=== PATIENT | female | born 1985 | race Caucasian/White ===

== ENCOUNTER 2019-03-24 14:02 | Emergency (ER) | payer OTHER, SELFPAY ==
[2019-03-24 14:07] VITALS: BP 106/70; PULSE 72; RESP 20; TEMP 37.1; O2SAT 100
--- NOTE | 2019-03-24 14:27 | ED.SKABFB ---
HPI - Skin/Abscess/Foreign Bdy General Chief complaint: Skin/Abscess/Foreign Body Stated complaint: poss anal abcess Time Seen by Provider: 03/24/19 14:27 Source: patient Mode of arrival: Wheelchair Limitations: no limitations History of Present Illness HPI narrative: 33-year-old female here for evaluation of pain around her anal area. She has noticed some pain in the area for the past couple days but worsening over the past 24 hours. She thinks is an abscess. Has not tried anything for symptoms prior to arrival. No prior anal abscesses. Related Data Previous Rx's Medication Instructions Recorded acetaminophen-codeine 1 tab PO Q4H PRN #10 tab 03/24/19 [Tylenol-Codeine #3] hydrocortisone-pramoxine 1 applictn IN TID-QID PRN #10 gram 03/24/19 [Proctofoam HC] Allergies Allergy/AdvReac Type Severity Reaction Status Date / Time Iodinated Contrast Media Allergy Severe Anaphylaxis Verified 03/24/19 14:12 latex Allergy Intermediate Rash Verified 03/24/19 14:10 Review of Systems Constitutional Constitutional: Denies fever(s) and Denies headache(s) ENT Ears, Nose, Mouth, and Throat: Denies headache(s) Gastrointestinal Gastrointestinal: Denies abdominal pain, Denies nausea and Denies vomiting Comments: Pain around the rectal area Genitourinary Genitourinary: Denies dysuria and Denies vaginal discharge Integumentary/Breasts Comments: Swelling around the rectal area Neurologic Neurologic: Denies behavioral changes and Denies headache(s) Psychiatric Psychiatric: Denies behavioral changes Hematologic/Lymphatic Hematologic/Lymphatic: Denies easy bleeding and Denies easy bruising Patient History Medical History Gastroparesis (Acute) Social History Smoking Status: Never smoker Smoking Status: Never smoker alcohol intake frequency: other Substance Use Type: marijuana Exam Initial Vital Signs Initial Vital Signs: Vital Signs Temperature 98.8 F 03/24/19 14:07 Pulse Rate 72 03/24/19 14:07 Respiratory Rate 20 03/24/19 14:07 Blood Pressure 106/70 03/24/19 14:07 Pulse Oximetry 100 03/24/19 14:07 Const General: cooperative, comfortable and well developed Limitations: mental status not altered [facility] Head: normal to inspection and normocephalic GI Other: Patient with a 1 cm thrombosed hemorrhoid left side. No active bleeding. Skin Other: Thrombosed hemorrhoid no other rashes Neuro General: alert, awake and oriented x3 Psych Appearance: grossly normal and well kempt Course Vital Signs Vital signs: Vital Signs - 8 hr 03/24/19 14:07 Temperature 98.8 F Pulse Rate 72 Respiratory Rate 20 Blood Pressure 106/70 Pulse Oximetry 100 MDM - Skin/Abscess/Foreign Bdy MDM Narrative Medical decision making narrative: Exam is consistent with a hemorrhoid. Low suspicion for an abscess. We did discuss treatment with the patient to include tucks pads and preparation H. Will also send home with Proctofoam. Also given a small course of pain medication. She is instructed to contact her primary provider about a referral to see General surgery. Discharge Plan Departure Patient Disposition: Home Clinical Impression: Hemorrhoid Qualifiers: Hemorrhoid type: unspecified Qualified Code(s): K64.9 - Unspecified hemorrhoids Instructions: Hemorrhoids (Alternative Therapy), Hemorrhoid Banding, DI for Hemorrhoids Activity Restrictions/Additional Instructions: Recommend that you try to have soft bowel movements like we discussed. You can use laxatives or stool softeners as needed. You can use [id number] preparation H and or tucks pads for the hemorrhoid. Contact your primary provider for follow-up. Prescriptions: New Proctofoam HC 1-1 % foam 1 applictn IN TID-QID PRN (Reason: hemorrhoids) Qty: 10 RF: 0 acetaminophen-codeine [Tylenol-Codeine #3] 300-30 mg tablet 1 tab PO Q4H PRN (Reason: pain) Qty: 10 RF: 0 Referrals: Khris Dalton MD [Primary Care Provider] -
--- NOTE | 2019-03-24 14:49 | PC.NURSE ---
chaperoned Dr. Price's exam.
== END 2019-03-24 15:09 | disposition home or self-care (01) ==
PROVIDERS: Emergency Provider Emergency Medicine; PCP Family Medicine
DX: K64.9 Unspecified hemorrhoids (principal)
CPT/HCPCS: 99281; 99283

== ENCOUNTER → 2022-01-26 13:47 | Outpatient (ROUT) | payer OTHER, SELFPAY ==
[2022-01-26 18:46] LABS: COVID-19 CEPHEID PCR (VTM/NP) Negative (Negative)
== END ==
PROVIDERS: PCP Family Medicine; Visit Provider Otolaryngology
DX: J35.01 Chronic tonsillitis (principal); J35.8 Other chronic diseases of tonsils and adenoids; R07.0 Pain in throat; J98.8 Other specified respiratory disorders; Z20.822 Contact with and (suspected) exposure to COVID-19
CPT/HCPCS: U0003; U0005

== ENCOUNTER 2022-01-28 10:19 | Day surgery (SDC) | payer OTHER, SELFPAY ==
[2022-01-27 13:40] VITALS: BMI 29.3
[2022-01-28 10:35] VITALS: BMI 27.3
[2022-01-28 10:48] VITALS: BP 117/69; PULSE 65; RESP 20; TEMP 36.3; O2SAT 98
[2022-01-28] MEDS: LACTATED RINGERS 1,000 ML 42 ML IV (10:48)
--- NOTE | 2022-01-28 10:51 | P.HP_ITS ---
History of Present Illness History of Present Illness Time Patient Seen: 10:51 Chief complaint: Tonsillectomy/Adenoidectomy Narrative: 36-year-old female last seen in clinic 11/24/2021 for chronic tonsillitis with stones and chronic throat irritation presents for tonsillectomy and possible adenoidectomy as outpatient. No interval health changes, wishes to proceed, staying locally before heading back to [place] tomorrow. Patient History Medical History Anemia Chronic tonsillitis EDS (Chris-Danlos syndrome) (2012) Gastroparesis GERD (gastroesophageal reflux disease) (1999) History of TMJ disorder POTS (postural orthostatic tachycardia syndrome) Thyroid nodule Tinnitus Surgical History Hx of colonoscopy Hx of tubal ligation (2013) [place] teeth removed (2015) Family & Social History Social History: household members spouse Tobacco & Substance use: Smoking Status Never smoker alcohol intake frequency other Substance Use Type marijuana Meds Home Medications and Allergies Home Medications Medication Instructions Recorded Confirmed Type atomoxetine 10 mg capsule 10 mg PO QAM 01/27/22 01/28/22 History (Strattera) Allergies Allergy/AdvReac Type Severity Reaction Status Date / Time Iodinated Contrast Media Allergy Severe Anaphylaxis Verified 01/28/22 10:33 latex Allergy Intermediate Rash Verified 01/28/22 10:33 adhesive Allergy Blister Verified 01/28/22 10:33 Review of Systems Review of Systems Narrative: Negative except as listed in the HPI Exam Narrative Exam Narrative: Well-developed well-nourished female in no acute distress. Heart regular rate and rhythm without murmur, lungs clear to auscultation bilaterally Assessment & Plan Assessment & Plan narrative: Assessment: Chronic tonsillitis with tonsil stones, chronic throat irritation Plan: Following discussion of the material risks benefits complications and alternatives, the patient elected to proceed with tonsillectomy and possible adenoidectomy as outpatient. Time Spent With Patient Critical Care time: I spent a total of [] minutes of critical care time on this patient's care today; this time is exclusive of procedural time.
--- NOTE | 2022-01-28 10:51 | PM.PREOP ---
Pre-operative Note Interval Note History & Physical reviewed/Exam performed by Physician: Yes Changes to H&P: No
--- NOTE | 2022-01-28 10:53 | P.OP_ITS ---
Operative Date/Time/Diagnoses Date of procedure: 01/28/22 Time of procedure: 11:41 Pre-op diagnosis: Chronic tonsillitis, tonsil stones, throat irritation Post-op diagnosis: same (mild adenoid hypertrophy) Procedure & Clinicians Procedure: Tonsillectomy and adenoidectomy Same procedure as scheduled: Yes Indications: 36-year-old female with the above diagnoses incompletely managed with medical therapy presents for the above procedure. Following discussion of the material risks benefits complications and alternatives, she elected to proceed. Surgeon: Kai Li Click Yes if Unassisted: Yes Anesthesia Type: General and Local Operative Notes Findings: Intact palate, single uvula, 1+ cryptic tonsils, 1+ adenoids Estimated Blood Loss (mL): 10 Procedure in detail: Following identification and confirmation of consent the patient was brought to the operating room suite and placed in the supine position. General endo tracheal anesthesia was administered. A head wrap, shoulder roll, and mouth gag were placed and a red rubber catheter was inserted through the nostril and out the mouth to retract the soft palate. Partially obstructive adenoid tissue was ablated with suction electrocautery on a setting of 40, without injury to the eustachian tube orifices or choana. The left tonsil was retracted medially and suction electrocautery on a setting of 30 was used to dissect the tonsil in a subcapsular plane, followed by hemostasis with the same. This process was repeated on the right side with identical findings. The tonsillar fossae were superficially infiltrated bilaterally with a 2% lidocaine 1 100,000 epinephrine. Mouth gag and rubber catheter were removed and the patient was extubated in the operating room and taken to the recovery room in stable condition without known complication. Complications: none Post-operative Condition: stable Disposition: same day surgery Plan for aftercare: Push fluids, alternate Tylenol and Advil every 3 hours for baseline pain control, oxycodone for breakthrough pain. Soft diet 2 full weeks, no heavy lifting or straining 2 weeks.
[2022-01-28] MEDS: LIDOCAINE 2% W/EPI INJ 20 ML INJ (11:20)
[2022-01-28 11:44] VITALS: BP 116/85; PULSE 98; RESP 17; TEMP 36.7; O2SAT 100
[2022-01-28 11:48] VITALS: BP 134/72; PULSE 100; RESP 21; O2SAT 99
[2022-01-28 11:54] VITALS: BP 121/84; PULSE 64; RESP 100; O2SAT 98
[2022-01-28 11:58] VITALS: BP 136/83; PULSE 75; RESP 16; O2SAT 99
[2022-01-28] MEDS: ONDANSETRON 4 MG/2 ML INJ IV (12:12)
[2022-01-28 12:24] VITALS: BP 123/77; PULSE 53; RESP 11; O2SAT 100
== END 2022-01-28 12:30 | disposition home or self-care (01) ==
PROVIDERS: PCP Family Medicine; Referring Provider Otolaryngology; Visit Provider Otolaryngology
PROC: (CPT 42821; principal; 2022-01-28 11:30)
DX: J35.01 Chronic tonsillitis (principal); J35.8 Other chronic diseases of tonsils and adenoids
CPT/HCPCS: 42821; J2250; J2405; J2704; J3010

== ENCOUNTER 2022-07-17 12:08 | Emergency (ER) | payer OTHER, SELFPAY ==
[2022-07-17] VITALS (15 sets, daily range): BP systolic 106–146; BP diastolic 62–89; PULSE 46–70; RESP 16; TEMP 36.7; O2SAT 98–100; BMI 27.7
[2022-07-17] MEDS: ONDANSETRON 4 MG ODT SL (12:28)
--- NOTE | 2022-07-17 12:42 | ED.NAVMDI ---
HPI - Nausea/Vomiting/Diarrhea General Chief complaint: Nausea/Vomiting/Diarrhea Stated complaint: vomit +2 days/headach/arm tingle Time Seen by Provider: 07/17/22 12:39 Source: patient Mode of arrival: Ambulatory History of Present Illness HPI Narrative: 36-year-old female smoker with history of POTS presents with the chief complaint of nausea and vomiting for the past few days. She cant even keep water down. She's developed a mild headache without other neurologic symptoms such as blurred vision or extremity weakness. She does have some cramping and tingling on occasion. Related Data Home Medications Medication Instructions Recorded Confirmed atomoxetine 10 mg capsule 10 mg PO QAM 01/27/22 01/28/22 (Strattera) Previous Rx's Medication Instructions Recorded ondansetron 4 mg disintegrating 4 mg PO TID-QID PRN nausea and 07/17/22 tablet vomiting #10 tabs Allergies Allergy/AdvReac Type Severity Reaction Status Date / Time Iodinated Contrast Media Allergy Severe Anaphylaxis Verified 01/28/22 10:33 latex Allergy Intermediate Rash Verified 01/28/22 10:33 adhesive Allergy Blister Verified 01/28/22 10:33 Review of Systems Review of Systems Narrative: GENERAL: See HPI HEENT: Denies sinus pain, ear pain, sore throat, difficulty swallowing, dizziness. RESPIRATORY: Denies dyspnea, cough, wheezing, hemoptysis, sputum. CARDIOVASCULAR: Denies chest pain, palpitations, orthopnea, edema, GASTROINTESTINAL: See HPI. : Denies dysuria, frequency, incontinence, hematuria, urinary retention. MUSCULOSKELETAL: denies weakness, joint pain, or bony pain SKIN: Denies rash, skin lesions, or other NEUROLOGIC: Denies weakness, headache, numbness, change in speech, confusion, seizures, incoordination. PSYCHIATRIC: No concerning psychosocial issues. 12 point review of systems is negative except for those stated above Patient History Medical History Anemia Chronic tonsillitis EDS (Chris-Danlos syndrome) (2012) Gastroparesis GERD (gastroesophageal reflux disease) (1999) History of TMJ disorder POTS (postural orthostatic tachycardia syndrome) Thyroid nodule Tinnitus Surgical History Hx of colonoscopy Hx of tubal ligation (2014) [place] teeth removed (2016) Social History household members: spouse Smoking Status: Current every day smoker Smoking Status: Current every day smoker alcohol intake frequency: holidays/special occasions only Substance Use Type: marijuana Exam Narrative Exam Narrative: GENERAL: [36] year old patient appears stated age. Well-developed patient, in mild distress. HEAD: Atraumatic. Normocephalic. EYES: Pupils equal round and reactive. Extraocular motions intact. No scleral icterus. No injection or drainage. ENT: Nose without bleeding, purulent drainage. Throat without erythema, tonsillar hypertrophy or exudate. Airway patent. NECK: Trachea midline. Non tender CARDIOVASCULAR: Regular rate and rhythm without murmurs, gallops, or rubs. RESPIRATORY: Clear to auscultation. Breath sounds equal bilaterally. No wheezes, rales, or rhonchi. GASTROINTESTINAL: Abdomen soft, non-tender, nondistended. EXTREMITIES: No edema or joint tenderness. BACK: Nontender without deformity or crepitance. No flank tenderness. NEURO: AOx3. SKIN: No rash or erythema of visible areas Initial Vital Signs Initial Vital Signs: Vital Signs Temperature 98.1 F 07/17/22 12:17 Pulse Rate 54 L 07/17/22 12:17 Respiratory Rate 16 07/17/22 12:17 Blood Pressure 121/82 07/17/22 12:17 Pulse Oximetry 99 07/17/22 12:17 Oxygen Delivery Method Room Air 07/17/22 12:17 Course Orders Ordered: ED Orders 07/17/22 12:25 Urine Culture Stat Urine Microscopic Stat 07/17/22 12:55 Complete Blood Count AUTO DIFF Stat Comprehensive Metabolic Panel Stat Lipase Stat Magnesium Stat 07/17/22 13:00 EKG-12 Lead Stat Ondansetron HCl (Ondansetron 4 Mg Odt) 4 mg SL NOW PRN PRN Reason: Nausea And Vomiting Last Admin: 07/17/22 12:28 Dose: 4 mg Documented By: NATASHA Ondansetron HCl (Ondansetron 4 Mg/2 Ml Inj) 4 mg IV NOW PRN PRN Reason: Nausea And Vomiting Discontinued Medications Sodium Chloride (Normal Saline 0.9%) 1,000 mls @ 1,000 mls/hr IV BOLUS ONE Stop: 07/17/22 13:38 Last Infusion: 07/17/22 14:10 Dose: 0 mls/hr Documented By: Admin: 07/17/22 13:04 Dose: 1,000 mls/hr Documented By: RB Sodium Chloride (Normal Saline 0.9%) 1,000 mls @ 1,000 mls/hr IV BOLUS ONE Stop: 07/17/22 15:10 Last Infusion: 07/17/22 16:05 Dose: 0 mls/hr Documented By: Admin: 07/17/22 14:30 Dose: 1,000 mls/hr Documented By: RB Ondansetron HCl (Ondansetron 4 Mg Odt Prepack) 1 bottle MISC SEEINSTR ONE Stop: 07/17/22 16:14 Pantoprazole Sodium (Pantoprazole 40 Mg Vial) 40 mg IV NOW ONE Stop: 07/17/22 12:40 Last Admin: 07/17/22 13:04 Dose: 40 mg Documented By: RB Vital Signs Vital signs: Vital Signs - 8 hr 07/17/22 12:17 07/17/22 12:40 07/17/22 12:41 Temperature 98.1 F Pulse Rate 54 L 70 Respiratory Rate 16 Blood Pressure 121/82 117/69 Pulse Oximetry 99 99 Oxygen Delivery Method Room Air 07/17/22 12:41 07/17/22 13:00 07/17/22 13:07 Temperature Pulse Rate 60 46 L Respiratory Rate Blood Pressure 106/69 Pulse Oximetry 99 100 Oxygen Delivery Method 07/17/22 13:07 Temperature Pulse Rate 56 L Respiratory Rate Blood Pressure Pulse Oximetry 99 Oxygen Delivery Method MDM - Nausea/Vomiting/Diarrhea Lab Data 07/17/22 12:55 07/17/22 12:55 Labs: Lab Results 07/17/22 07/17/22 07/17/22 Range/Units 12:25 12:55 12:55 WBC 9.1 (4.5-11.0) X10^3/uL RBC 4.59 (4.0-5.2) X10^6/uL Hgb 13.9 (12.0-16.0) g/dL Hct 40.5 (36-46) % MCV 88.1 (80-100) fL MCH 30.2 (26-34) PG MCHC 34.3 (30-36) % RDW 12.7 (11.6-14.8) % Plt Count 237 (150-400) X10^3/uL Neut % (Auto) 80.7 H (50-75) % Lymph % (Auto) 14.3 L (25-40) % [place] % (Auto) 4.5 (3-14) % Eos % (Auto) 0.2 L (2-4) % Baso % (Auto) 0.3 (0-2) % Neut # (Auto) 7300 H (6432-4181) /uL Lymph # (Auto) 1300 (4923-3594) /uL [place] # (Auto) 400 (0-900) /uL Eos # (Auto) 0 (0-450) /uL Baso # (Auto) 0 (0-100) /uL Sodium 138 (137-145) mmol/L Potassium 3.6 (3.4-5.1) mmol/L Chloride 105 (98-107) mmol/L Carbon Dioxide 27 (22-32) mmol/L BUN 10 (7-17) mg/dL Creatinine 0.68 (0.52-1.04) mg/dL Estimated GFR > 60 (>60) mL/min BUN/Creatinine Ratio 14.7 (6-22) Glucose 100 (70-100) mg/dL Calcium 9.0 (8.4-10.2) mg/dL Magnesium 1.9 (1.6-2.3) mg/dL Total Bilirubin 0.5 (0.2-1.3) mg/dL AST 20 (14-36) IU/L ALT 21 (<35) IU/L Alkaline Phosphatase 66 (38-126) U/L Total Protein 7.4 (6.3-8.2) g/dL Albumin 4.3 (3.5-5.0) g/dL Globulin 3.1 (1.7-4.1) g/dL Albumin/Globulin Ratio 1.4 (1.0-2.8) Lipase 42 (23-300) U/L Urine RBC None seen (0-5/HPF) Urine WBC 5-10/hpf H (0-5/HPF) Ur Squamous Epith Cells 5-10 /hpf H (0-5/HPF) Urine Bacteria Occasional (0-1) (None) Urine Mucus 3+ H (Negative) Ur Culture Indicated? Specimen cultured Point of Care Testing Test Results Negative Urine Dip Bedside Urine Glucose Negative Bedside Urine Bilirubin - Negative Bedside Urine Ketone +++ 80 Urine Specific [place] 1.020 Bedside Urine Occult Blood - Negative Bedside Urine pH 6.0 Bedside Urine Protein - Negative Bedside Urine Urobilinogen - Negative Bedside Urine Nitrite - Negative Bedside Urine Leukocytes - Negative Esterase MDM Narrative Medical decision making narrative: [36] year old patient presents with nausea and vomiting for the past few days Multiple etiologies for patient's symptoms considered including, but not limited to: [Obstructive process versus infectious process versus electrolyte abnormality versus dehydration versus other] Prior Charts reviewed in our EMR Primary Historian: patient Labs reviewed and interpreted by myself: No significant abnormal findings requiring specific or immediate intervention Patient's symptoms improved over duration of stay with above-stated therapies. Vitals and labs reassuring, patient has had 2 L of saline and is tolerating orals without difficulty, she is ambulatory in the department Findings and discharge diagnosis discussed with patient/family followed by verbalization of understanding Return precautions discussed with patient/family whom verbalize understanding of diagnosis and plan Discharge Plan Departure Patient Disposition: Home Clinical Impression: Nausea & vomiting Instructions: DI for Dehydration -- Adult Activity Restrictions/Additional Instructions: *You have been diagnosed with [nausea and vomiting] *What to do: *Please continue to take your regular medications as directed. [x ] New medication prescriptions sent to your pharmacy: [[facility] ] [ ] New medication written as a paper prescription [ ] No new medications given *Please follow up with your primary care provider in 2-3 days, call for an appointment. Let them know you were seen in the Emergency Department and that we ask that you be seen in follow up. We will electronically transmit a record of today's note if your PCP is in our system *If you do not have a primary care provider please contact the [facility] Resource line at [phone]. They will ask some questions about your medical history and help get you set up with a doctor in the community. *Return to Emergency Department if you should have any new, worsening or concerning symptoms, such as [fever greater than 101 F, shaking chills, worsening pain, persistent vomiting or other bothersome symptoms] Prescriptions: New ondansetron 4 mg tablet,disintegrating 4 mg PO TID-QID PRN (Reason: nausea and vomiting) Qty: 10 0RF No Action atomoxetine [Strattera] 10 mg Capsule 10 mg PO QAM Referrals: Khris Dalton MD [Primary Care Provider] - Stand Alone Forms: Patient Portal/API
[2022-07-17] MEDS: SODIUM CHLORIDE 0.9% 1,000 ML 1000 ML IV ×2 (13:04→14:30)
[2022-07-17] MEDS: PANTOPRAZOLE 40 MG VIAL IV (13:04)
[2022-07-17 13:08] LABS: Add Manual Diff / Slide Review NO; Basophils Absolute Auto 0 /uL (0-100); Basophils Percent Auto 0.3 % (0-2); Eosinophils Absolute Auto 0 /uL (0-450); Eosinophils Percent Auto 0.2 % (2-4); Hematocrit 40.5 % (36-46); Hemoglobin 13.9 g/dL (12.0-16.0); Lymphocytes Absolute Auto 1300 /uL (1100-4500); Lymphocytes Percent Auto 14.3 % (25-40); Mean Corpuscular HGB Conc 34.3 % (30-36); Mean Corpuscular Hemoglobin 30.2 PG (26-34); Mean Corpuscular Volume 88.1 fL (80-100); Monocytes Absolute Auto 400 /uL (0-900); Monocytes Percent Auto 4.5 % (3-14); Neutrophils Absolute Auto 7300 /uL (1500-7000); Neutrophils Percent Auto 80.7 % (50-75); Platelet Count 237 X10^3/uL (150-400); Red Blood Cell Count 4.59 X10^6/uL (4.0-5.2); Red Cell Distribution Width 12.7 % (11.6-14.8); White Blood Cell Count 9.1 X10^3/uL (4.5-11.0)
[2022-07-17 13:19] LABS: RBC Urine None Seen (0-5/HPF); WBC Urine 5-10/HPF (0-5/HPF)
[2022-07-17 13:20] LABS: Bacteria Urine Occasional (0-1); Culture Indicated Urine Specimen Cultured; Mucus Urine 3+ (Negative); Squamous Epithelial Cell Urine 5-10 /HPF (0-5/HPF)
[2022-07-17 13:28] LABS: Alanine Aminotransferase 21 IU/L (<35); Albumin 4.3 g/dL (3.5-5.0); Albumin Globulin Ratio 1.4 (1.0-2.8); Alkaline Phosphatase 66 U/L (38-126); Aspartate Aminotransferase 20 IU/L (14-36); BUN Creatinine Ratio 14.7 (6-22); Bilirubin Total 0.5 mg/dL (0.2-1.3); Blood Urea Nitrogen 10 mg/dL (7-17); Carbon Dioxide 27 mmol/L (22-32); Chloride 105 mmol/L (98-107); Estimated Glomerular Filt Rate > 60 mL/min (>60); Globulin 3.1 g/dL (1.7-4.1); Glucose 100 mg/dL (70-100); HEMOLYSIS < 15 (0-50); Lipase 42 U/L (23-300); Magnesium 1.9 mg/dL (1.6-2.3); Potassium 3.6 mmol/L (3.4-5.1); Sodium 138 mmol/L (137-145); Total Protein 7.4 g/dL (6.3-8.2)
[2022-07-17] MEDS: ONDANSETRON 4 MG/2 ML INJ IV (16:26)
[2022-07-17] MEDS: ONDANSETRON 4 MG ODT PREPACK 1 BOTTLE MISC (16:26)
== END 2022-07-17 16:33 | disposition home or self-care (01) ==
PROVIDERS: Emergency Provider Emergency Medicine; PCP Family Medicine
DX: R11.2 Nausea with vomiting, unspecified (principal)
CPT/HCPCS: 36415; 80053; 81003; 81015; 81025; 83690; 83735; 85025; 87086; 93005; 93010; 96374; 96375; 99284; C9113; J2405